=== PATIENT | male | born 1980 | race Caucasian/White ===

== ENCOUNTER 2016-08-19 23:21 | Emergency (ER) | payer OTHER ==
[2016-08-20 00:20] LABS: BASO # 0.1 10_X3_uL (0.0-0.1); BASO % 0.6 % (0.2-1.2); EOS # 0.4 10_X3_uL (0.0-0.5); EOS % 4.3 % (0.8-7.0); GRAN # 5.1 10_X3_uL (1.8-5.4); HEMOGLOBIN 15.6 g/dL (13.7-17.5); LYMPH # 3.6 10_X3_uL (1.3-3.6); LYMPH % 35.3 % (21.8-53.1); MEAN CORPUSCULAR HEMOGLOBIN 30.5 pg (27.0-33.0); MEAN CORPUSCULAR HGB CONC 33.9 g/dL (32.0-36.0); MEAN PLATELET VOLUME 12.4 fl (7.5-11.5); MONO % 9.8 % (5.3-12.2); PLATELET COUNT 203 x10_3/uL (163-337); RED BLOOD COUNT 5.11 x10_6/uL (4.6-6.1); RED CELL DISTRIBUTION WIDTH 14.1 % (11.6-14.4); WHITE BLOOD COUNT 10.3 x10_3/uL (4.2-9.1)
[2016-08-20 00:36] LABS: ALBUMIN 3.9 gm/dL (3.4-5.0); ALKALINE PHOSPHATASE 62 U/L (50-136); ALT/SGPT 29 U/L (7.53-40.17); AST/SGOT 20 U/L (6.66-35.34); BILIRUBIN,TOTAL 0.24 mg/dL (0.0-1.0); BLOOD UREA NITROGEN 13 mg/dL (7-18); CALCIUM 9.1 mg/dL (8.7-10.7); CARBON DIOXIDE 26 mmol/L (21-32); CREATINE KINASE 259 U/L (35-232); CREATININE 0.9 mg/dL (0.6-1.3); GLUCOSE,RANDOM 101 mg/dL (70-99); LIPASE 30 U/L (6.75-60.75); POTASSIUM 3.9 mmol/L (3.5-5.1); SODIUM 142 mmol/L (136-145)
== END 2016-08-20 01:09 | disposition home or self-care (01) ==
LOC: ER 23:21
PROVIDERS: Emergency Medicine
DX: R07.2 Precordial pain (principal); F41.9 Anxiety disorder, unspecified; R06.02 Shortness of breath; R11.2 Nausea with vomiting, unspecified; F32.9 Major depressive disorder, single episode, unspecified; Z88.0 Allergy status to penicillin; Z88.6 Allergy status to analgesic agent; F17.210 Nicotine dependence, cigarettes, uncomplicated; Z79.899 Other long term (current) drug therapy
CPT/HCPCS: 36415; 71010; 80053; 82550; 82553; 83690; 85025; 93005; 99285-25

== ENCOUNTER 2016-08-27 21:35 | Emergency (ER) | payer OTHER ==
[2016-08-27 21:54] LABS: URINE BILIRUBIN 1+ (NEGATIVE); URINE BLOOD 2+ (NEGATIVE); URINE GLUCOSE (UA) NORMAL (NORMAL); URINE KETONE 1+ (NEGATIVE); URINE LEUKOCYTE ESTERASE 2+ (NEGATIVE); URINE NITRATE POSITIVE (NEGATIVE); URINE PROTEIN 1+ (NEGATIVE)
[2016-08-27 22:20] LABS: URINE BACTERIA FEW (NONE SEEN); URINE SQUAMOUS EPITHELIAL CELL 0-10 /[HPF] (NONE SEEN); URINE WBC TNTC /[HPF] (0-3); URINE YEAST FEW (NONE SEEN)
[2016-08-27 22:23] LABS: BASO # 0.1 10_X3_uL (0.0-0.1); BASO % 0.2 % (0.2-1.2); EOS % 0.1 % (0.8-7.0); GRAN # 18.3 10_X3_uL (1.8-5.4); HEMATOCRIT 46.4 % (40-51); HEMOGLOBIN 15.3 g/dL (13.7-17.5); LYMPH % 12.8 % (21.8-53.1); MEAN CORPUSCULAR HEMOGLOBIN 29.9 pg (27.0-33.0); MEAN CORPUSCULAR VOLUME 90.8 fL (79-92); MEAN PLATELET VOLUME 12.6 fl (7.5-11.5); MONO # 1.8 10_X3_uL (0.3-0.8); MONO % 7.9 % (5.3-12.2); PLATELET COUNT 161 x10_3/uL (163-337); RED BLOOD COUNT 5.11 x10_6/uL (4.6-6.1); RED CELL DISTRIBUTION WIDTH 14.4 % (11.6-14.4)
[2016-08-27 22:35] LABS: WHITE BLOOD COUNT 23.2 x10_3/uL (4.2-9.1)
[2016-08-27 22:37] LABS: ALBUMIN 3.7 gm/dL (3.4-5.0); ALKALINE PHOSPHATASE 66 U/L (50-136); ALT/SGPT 21 U/L (7.53-40.17); AST/SGOT 20 U/L (6.66-35.34); BILIRUBIN,TOTAL 0.93 mg/dL (0.0-1.0); BLOOD UREA NITROGEN 12 mg/dL (7-18); CALCIUM 8.5 mg/dL (8.7-10.7); CARBON DIOXIDE 22 mmol/L (21-32); CREATININE 0.8 mg/dL (0.6-1.3); GLUCOSE,RANDOM 132 mg/dL (70-99); POTASSIUM 3.2 mmol/L (3.5-5.1); SODIUM 136 mmol/L (136-145); TOTAL PROTEIN 7.2 gm/dL (6.4-8.2)
== END 2016-08-28 00:35 | disposition short-term general hospital (02) ==
LOC: ER 21:35
PROVIDERS: Emergency Medicine
DX: N39.0 Urinary tract infection, site not specified (principal); R10.31 Right lower quadrant pain; E66.01 Morbid (severe) obesity due to excess calories; Z87.442 Personal history of urinary calculi; F41.9 Anxiety disorder, unspecified; G25.81 Restless legs syndrome; F17.210 Nicotine dependence, cigarettes, uncomplicated; R30.0 Dysuria; R11.2 Nausea with vomiting, unspecified; Z88.0 Allergy status to penicillin; Z88.6 Allergy status to analgesic agent; Z79.899 Other long term (current) drug therapy
CPT/HCPCS: 36415; 80053; 81001; 85025; 87086; 87186; 96365; 96367; 96372; 96375; 99070; 99284-25; J1170; Q0169